=== PATIENT | male | born 1960 | race African-American/Black ===

== ENCOUNTER 2024-12-13 17:20 | Inpatient (IN) | payer MEDICAID ==
[~2024-12-13] VITALS: Ht 175.3 cm; Wt 81.6 kg
[~2024-12-13 17:20] MED LIST: AMLO5TAB88 PO; AMOX1TAB16 MT; EMPA25TA PO; FOLI-43 PO; FURO20TA4 PO; GLIP10TA17 PO; INSU100I28 SQ; LOSA100T33 PO; SACU1TAB PO; SENN-362 PO; SITA100T11 PO; SPIR25TA6 PO; TAMS-54 PO
[2024-12-13 18:12] LABS: CLARITY URINE CLEAR (CLEAR); COLOR URINE YELLOW (YELLOW); PH URINE 5.5 (4.5-8.0); SPECIFIC GRAVITY URINE 1.009 (1.005-1.030)
[2024-12-13 18:13] LABS: GLUCOSE URINE 1+ (NEGATIVE); KETONES URINE NEGATIVE (NEGATIVE); LEUKOCYTE ESTERASE URINE NEGATIVE (NEGATIVE); NITRITE URINE NEGATIVE (NEGATIVE); OCCULT BLOOD URINE NEGATIVE (NEGATIVE); PROTEIN URINE 2+ (NEGATIVE); UROBILINOGEN URINE 0.2 E.U./dL (0.2-1.0)
[2024-12-13 18:14] LABS: BACTERIA URINE TRACE; RBC URINE NONE SEEN /hpf (0-2); SQUAMOUS EPITHELIAL CELL URINE NONE SEEN /lpf (RARE/1+); WBC URINE 0-2 /hpf (0-2)
[2024-12-13 18:34] LABS: BASOPHILS % 0.5 % (0.0-2.0); EOSINOPHILS % 0.6 % (0.0-5.0); HEMATOCRIT. 40.1 % (42.0-52.0); HEMOGLOBIN. 13.5 g/dL (14.0-18.0); LYMPHOCYTES % 20.9 % (20.0-50.0); MEAN CORPUSCULAR HEMOGLOBIN 29.3 pg (28.0-32.0); MEAN CORPUSCULAR HGB CONC 33.6 g/dL (31.0-37.0); MEAN PLATELET VOLUME 8.1 fl (7.4-10.4); MONOCYTES % 8.3 % (2.0-8.0); NEUTROPHILS % 69.7 % (40.0-76.0); PLATELET 227 x1000/uL (130-400); RED CELL DISTRIBUTION WIDTH 14.3 % (11.6-14.6); WHITE BLOOD COUNT 8.2 x1000/uL (4.5-11.0)
[2024-12-13 18:46] LABS: CHLORIDE 105 mEq/L (98-107); POTASSIUM 3.8 mEq/L (3.5-5.1); SODIUM 139 mEq/L (136-145)
[2024-12-13 18:47] LABS: CALCIUM 9.6 mg/dL (8.7-10.4); CARBON DIOXIDE 24 mEq/L (21-32); TROPONIN I HIGH SENSITIVITY 6 ng/L (3.0-53)
[2024-12-13 18:52] LABS: CREATININE 0.8 mg/dL (0.6-1.3); GLUCOSE 74 mg/dL (70-105); UREA NITROGEN BLOOD 12 mg/dL (9-23)
[2024-12-13 18:53] LABS: PARTIAL THROMBOPLASTIN TIME 25.2 sec (23.4-31.0); PROTHROMBIN TIME 10.3 sec (9.6-11.0)
[2024-12-13 18:54] LABS: PHOSPHORUS 3.3 mg/dL (2.5-4.9)
[2024-12-13] MEDS ORDERED: GUAIFENESIN 200MG/10ML SUGAR FREE UDC PO PRN (22:15)
[2024-12-13] MEDS ORDERED: ATROPINE SULFATE 1MG/ML VIAL IV PRN (22:15)
[2024-12-13] MEDS ORDERED: ONDANSETRON HCL 4MG/2ML INJ IV PRN (22:15)
[2024-12-13] MEDS ORDERED: MAGNESIUM/ALUMINUM HYDROXIDE/SIMETHICONE 30ML UDC PO PRN (22:15)
[2024-12-13] MEDS ORDERED: ACETAMINOPHEN 325MG TABLET PO PRN (22:15)
[2024-12-13] MEDS ORDERED: DOCUSATE SODIUM 100MG CAPSULE PO PRN (22:15)
[2024-12-13] MEDS ORDERED: DEXTROSE 50% WATER 50ML SYRINGE IV PRN (22:15)
[2024-12-13] MEDS ORDERED: IPRATROPIUM/ALBUTEROL 0.5-3(2.5)MG/3ML NEB HHN PRN (22:15)
[2024-12-13] MEDS ORDERED: HYDRALAZINE 20MG/ML VIAL IV PRN (22:30)
[2024-12-14] VITALS: BP_SYST 128; BP_SYST 171; BP_DIAS 62; BP_DIAS 90; PULSE 62; PULSE 83; RESP 20; TEMP 36.4; TEMP 36.5; O2SAT 99
[2024-12-14] MEDS ORDERED: LORAZEPAM 2MG/ML UD SYRINGE IV PRN (03:15)
[2024-12-14] MEDS ORDERED: ASPI-1406 PO (03:24)
[2024-12-14] MEDS ORDERED: ATOR40TA70 PO (03:24)
[2024-12-14 04:00] VITALS: BP 143/77; PULSE 66; RESP 20; TEMP 36.4; O2SAT 98
[2024-12-14] MEDS: BLOOD SUGAR DIAGNOSTIC STRIP TEST SCH (06:43)
[2024-12-14] MEDS: INSULIN LISPRO 100 UNITS/ML SUBCUT SCH (07:50)
[2024-12-14 08:29] LABS: PHOSPHORUS 3.6 mg/dL (2.5-4.9)
[2024-12-14] MEDS ORDERED: EMPAGLIFLOZIN 25MG TABLET PO SCH (09:00)
[2024-12-14] MEDS: EMPAGLIFLOZIN 10MG TABLET PO SCH (09:00)
[2024-12-14] MEDS: AMLODIPINE 5MG TABLET PO SCH (09:00)
[2024-12-14] MEDS: LOSARTAN 50 MG TABLET PO SCH (09:00)
[2024-12-14] MEDS: ASPIRIN 81MG EC TABLET PO SCH (09:00)
[2024-12-14] MEDS ORDERED: SENNOSIDES 8.6MG TABLET PO SCH (09:00)
[2024-12-14] MEDS ORDERED: SACUBITRIL/VALSARTAN 24MG/26MG TABLET PO SCH (09:00)
[2024-12-14] MEDS: FOLIC ACID 1MG TABLET PO SCH (09:00)
[2024-12-14] MEDS ORDERED: FUROSEMIDE 20MG/2ML VIAL IVP SCH (09:00)
[2024-12-14 09:22] LABS: HEPATITIS B SURFACE ANTIGEN NEGATIVE (Negative)
[2024-12-14 09:44] LABS: HEPATITIS C AB NON REACTIVE (Neg) (Negative)
[2024-12-14] MEDS ORDERED: DOPAMINE 400MG/250ML PREMIX 250 ML IV PRN (10:00)
[2024-12-14] MEDS ORDERED: GENTAMICIN/NS IRRIGATION 500 ML IR SCH (14:30)
[2024-12-14] MEDS ORDERED: MIDAZOLAM HCL 2 MG/2 ML VIAL ONE ×2 (15:13→15:56)
[2024-12-14] MEDS ORDERED: CEFAZOLIN SODIUM 1000MG/VIAL ONE (15:13)
[2024-12-14] MEDS ORDERED: FENTANYL CITRATE/PF 50MCG/ML 2ML VIAL ONE (15:13)
[2024-12-14] MEDS ORDERED: STERILE WATER FOR INJECTION 10ML VIAL ONE (15:14)
[2024-12-14] MEDS ORDERED: DIPHENHYDRAMINE 50MG/ML VIAL ONE (15:26)
[2024-12-14] MEDS ORDERED: LIDOCAINE HCL 1% 20ML VIAL ONE (15:37)
[2024-12-14] MEDS ORDERED: NALOXONE HCL 0.4MG/ML VIAL IV PRN (17:30)
[2024-12-14] MEDS: DOCUSATE SODIUM 100MG CAPSULE PO SCH (17:52)
[2024-12-14 20:00] VITALS: BP 132/78; PULSE 69; RESP 18; TEMP 36.3; O2SAT 98
[2024-12-14] MEDS: FAMOTIDINE 20MG TABLET PO SCH (22:42)
[2024-12-14] MEDS: ATORVASTATIN CALCIUM 40MG TABLET PO SCH (22:42)
[2024-12-14] MEDS: CEFAZOLIN 1000MG PREMIX 50 ML IV SCH (22:43)
[2024-12-14] MEDS: ACETAMINOPHEN 325MG TABLET PO PRN (22:43)
[2024-12-15] VITALS: BP 148/65; PULSE 62; RESP 18; TEMP 36.3; O2SAT 100
[2024-12-15 04:00] VITALS: BP 160/76; PULSE 66; RESP 16; TEMP 36.3; O2SAT 100
[2024-12-15] MEDS: MORPHINE SULFATE 2 MG/ML INJ (NOT FOR IM USE) IV PRN (04:27)
[2024-12-15 08:00] VITALS: BP 132/90; PULSE 104; RESP 18; TEMP 36.3; O2SAT 100
[2024-12-15 08:27] LABS: BASOPHILS % 0.2 % (0.0-2.0); EOSINOPHILS % 1.4 % (0.0-5.0); HEMATOCRIT. 41.4 % (42.0-52.0); HEMOGLOBIN. 14.1 g/dL (14.0-18.0); LYMPHOCYTES % 18.1 % (20.0-50.0); MEAN CORPUSCULAR HEMOGLOBIN 29.4 pg (28.0-32.0); MEAN CORPUSCULAR HGB CONC 33.9 g/dL (31.0-37.0); MEAN CORPUSCULAR VOLUME 86.5 fL (80.0-94.0); MEAN PLATELET VOLUME 8.2 fl (7.4-10.4); MONOCYTES % 9.3 % (2.0-8.0); PLATELET 235 x1000/uL (130-400); RED BLOOD CELL COUNT 4.79 mill/uL (4.7-6.1); RED CELL DISTRIBUTION WIDTH 14.1 % (11.6-14.6); WHITE BLOOD COUNT 8.5 x1000/uL (4.5-11.0)
[2024-12-15 08:38] LABS: CARBON DIOXIDE 28 mEq/L (21-32); CHLORIDE 103 mEq/L (98-107); POTASSIUM 4.3 mEq/L (3.5-5.1); SODIUM 141 mEq/L (136-145)
[2024-12-15 08:39] LABS: CALCIUM 9.8 mg/dL (8.7-10.4)
[2024-12-15 08:44] LABS: CREATININE 0.8 mg/dL (0.6-1.3); GLUCOSE 142 mg/dL (70-105); UREA NITROGEN BLOOD 13 mg/dL (9-23)
[2024-12-15] MEDS ORDERED: SPIRONOLACTONE 25MG TABLET PO SCH (09:00)
[2024-12-15] MEDS: DEXT 5%/0.45% NACL 1000ML 1,000 ML IV SCH (09:00)
[2024-12-15] MEDS: TAMSULOSIN HCL 0.4MG SR CAPSULE PO SCH (09:12)
[2024-12-15] MEDS: HYDROCODONE/ACETAMINOPHEN 5/325MG TABLET PO PRN (10:40)
[2024-12-15 11:42] VITALS: BP 130/75; PULSE 96; TEMP 98.4; O2SAT 98
[2024-12-15 12:00] VITALS: BP 136/72; PULSE 97; RESP 18; TEMP 36.3; O2SAT 97
== END 2024-12-15 15:10 | disposition home or self-care (01) | DRG 171 ==
LOC: ER 17:20 → ENRESERV 20:30 → 6WST 20:33
PROVIDERS: ADMIT Hospitalist; ATTEND Hospitalist
PROC: 0JH606Z Insertion of Pacemaker, Dual Chamber into Chest Subcutaneous Tissue and Fascia, Open Approach (ICD-10-PCS; principal; 2024-12-14)
PROC: 02H63JZ Insertion of Pacemaker Lead into Right Atrium, Percutaneous Approach (ICD-10-PCS; 2024-12-14)
PROC: 02HK3JZ Insertion of Pacemaker Lead into Right Ventricle, Percutaneous Approach (ICD-10-PCS; 2024-12-14)
PROC: 0JPT02Z Removal of Monitoring Device from Trunk Subcutaneous Tissue and Fascia, Open Approach (ICD-10-PCS; 2024-12-14)
PROC: 4B02XSZ Measurement of Cardiac Pacemaker, External Approach (ICD-10-PCS; 2024-12-15)
DX: I44.2 Atrioventricular block, complete (principal); I11.0 Hypertensive heart disease with heart failure; I50.9 Heart failure, unspecified; I69.354 Hemiplegia and hemiparesis following cerebral infarction affecting left non-dominant side; E11.9 Type 2 diabetes mellitus without complications; E78.5 Hyperlipidemia, unspecified; F10.20 Alcohol dependence, uncomplicated; D64.9 Anemia, unspecified; F41.9 Anxiety disorder, unspecified; Y90.9 Presence of alcohol in blood, level not specified; G47.33 Obstructive sleep apnea (adult) (pediatric)
CPT/HCPCS: 33208; 36415; 71045; 80048; 81003; 82962; 83036; 83735; 83880; 84100; 84484; 85025; 86705; 87340; 93005; 97166; 97530; 97535; 99285; A4216; C1898; J0690; J1200; J2003; J2250; J2270; J3010; C1785